=== PATIENT | male | born 2005 | race Caucasian/White ===

== ENCOUNTER 2024-10-02 00:43 | Emergency (ER) | payer BC ==
[2024-10-02] MEDS ORDERED: Sodium Chloride 0.9% 10 ML Syringe FLUSH PRN (00:46)
[2024-10-02] MEDS ORDERED: Adenosine 6 MG/2 ML SDV IVPUSH PRN ×2 (01:02)
[2024-10-02 01:16] LABS: BASOPHILS ABSOLUTE AUTO 0.05 K/uL (0.00-0.20); BASOPHILS PERCENT AUTO 0.5 % (0.0-1.0); EOSINOPHILS PERCENT AUTO 6.3 % (0.0-6.0); HEMATOCRIT 49.3 % (42.0-52.0); IMMATURE GRAN ABSOLUTE AUTO 0.03 K/uL (0.00-0.05); IMMATURE GRAN PERCENT AUTO 0.3 % (0.0-0.4); LYMPHOCYTES ABSOLUTE AUTO 1.82 K/uL (1.00-4.80); LYMPHOCYTES PERCENT AUTO 16.4 % (24.0-44.0); MEAN CORPUSCULAR HEMOGLOBIN 31.3 pg (28.0-32.0); MEAN CORPUSCULAR HGB CONC 34.5 g/dL (32.0-36.0); MEAN CORPUSCULAR VOLUME 90.8 fL (83.0-99.0); MEAN PLATELET VOLUME 9.8 fL (9.4-12.4); MONOCYTES ABSOLUTE AUTO 0.84 K/uL (0.00-0.80); MONOCYTES PERCENT AUTO 7.6 % (0.0-8.0); NEUTROPHILS ABSOLUTE AUTO 7.67 K/uL (1.80-7.70); NEUTROPHILS PERCENT AUTO 68.9 % (41.0-71.0); PLATELET COUNT,PLT 259 K/uL (150-400); RED BLOOD CELL COUNT 5.43 M/uL (4.52-5.90); WHITE BLOOD CELL COUNT,WBC 11.11 K/uL (3.9-11.3)
[2024-10-02] MEDS: Sodium Chloride 0.9% 1,000 ML IV ONE (01:22)
[2024-10-02 01:28] LABS: INR < 0.93 (0.86-1.11)
[2024-10-02 01:53] LABS: A/G RATIO 0.9 (0.9-1.6); ALBUMIN 3.9 g/dL (3.4-5.0); BILIRUBIN TOTAL 0.3 mg/dL (0.2-1.0); CARBON DIOXIDE,CO2 27.3 mmol/L (21.0-32.0); CREATININE 1.1 mg/dL (0.8-1.3); EST CRCL DRUG DOSING (CG) 104.55 mL/min; MAGNESIUM 2.1 mg/dL (1.8-2.4); POTASSIUM,K 3.6 mmol/L (3.5-5.1); PROTEIN TOTAL,TP 8.3 g/dL (6.4-8.2)
[2024-10-02 02:52] LABS: AMPHETAMINES SCREEN, URINE NEGATIVE (CUTOFF=500); BARBITURATE SCREEN,URINE NEGATIVE (CUTOFF=200); BENZODIAZEPINES SCREEN,URINE NEGATIVE (CUTOFF=150); BUPRENORPHINE SCREEN,URINE NEGATIVE (CUTOFF=10); METHADONE SCREEN, URINE NEGATIVE (CUTOFF=200); METHAMPHETAMINES SCREEN, URINE NEGATIVE (CUTOFF=500); OXYCODONE SCREEN,URINE NEGATIVE (CUT0FF=100); PCP SCREEN,URINE NEGATIVE (CUTOFF=25); THC SCREEN,URINE 20 NG/ML NEGATIVE (CUTOFF=50)
== END 2024-10-02 04:04 | disposition home or self-care (01) ==
LOC: MW.ED 00:43
DX: R00.2 Palpitations (principal); I47.10 Supraventricular tachycardia, unspecified; F10.920 Alcohol use, unspecified with intoxication, uncomplicated
CPT/HCPCS: 36415; 71045; 80053; 80305; 80307; 83690; 83735; 83880; 84484; 85025; 85610; 93005; 96360; 99285; J0153; J7030